=== PATIENT | male | born 2000 | race Two or more races ===

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

== ENCOUNTER 2020-06-29 13:01 | Outpatient (REF) | payer MEDICAID, SELFPAY ==
[2020-06-29 13:40] LABS: COVID-19 Test Negative (Negative); IDNOW Serial# 55D5AD1C
== END 2020-06-29 13:02 | disposition home or self-care (01) ==
LOC: HO.LAB 13:01
PROVIDERS: Visit Provider Internal Medicine
DX: Z20.822 Contact with and (suspected) exposure to COVID-19 (principal)
CPT/HCPCS: 36415; 87635; C9803

== ENCOUNTER 2020-12-21 12:22 | Outpatient (REF) | payer MEDICAID, SELFPAY ==
[2020-12-21 12:45] LABS: COVID-19 Test Negative (Negative)
== END 2020-12-21 12:23 | disposition home or self-care (01) ==
LOC: HO.LAB 12:22
PROVIDERS: Visit Provider Internal Medicine
DX: Z20.822 Contact with and (suspected) exposure to COVID-19 (principal)
CPT/HCPCS: 36415; 87635; C9803